=== PATIENT | male | born 1970 | race Caucasian/White ===

== ENCOUNTER → 2016-09-01 | Outpatient (CLI) | payer OTHER ==
--- NOTE | 2016-09-02 16:38 | XR ---
EXAMINATION TYPE: XR chest 2V DATE OF EXAM: 09/01/2016 11:38 AM COMPARISON: None HISTORY: 46-year-old male with cough TECHNIQUE: Frontal and lateral views FINDINGS: The cardiomediastinal silhouette, aorta, and pulmonary vasculature are within normal limits. Some str yudelka atelectasis in the lower lungs. Otherwise, lungs and pleural spaces are clear. IMPRESSION: No acute cardiopulmonary process.
== END ==
LOC: RADXRYALE 11:25
PROVIDERS: ATTEND Internal Medicine
DX: R05 Cough (principal)
CPT/HCPCS: 71020

== ENCOUNTER → 2016-09-20 | Outpatient (CLI) | payer OTHER ==
--- NOTE | 2016-09-20 12:27 | ECHOF ---
Referral Reason:R06.02 SOV MEASUREMENTS -------- HEIGHT: 167.6 cm WEIGHT: 83.9 kg BP: 148/84 RVIDd: 3.7 cm (< 3.3) IVSd: 1.1 cm (0.6 - 1.1) LVIDd: 3.7 cm (3.9 - 5.3) LVPWd: 1.1 cm (0.6 - 1.1) IVSs: 1.4 cm LVIDs: 2.6 cm LVPWs: 1.5 cm LA Diam: 3.6 cm (2.7 - 3.8) LAESV Index (A-L): 28.13 ml/m Ao Diam: 3.3 cm (2.0 - 3.7) AV Cusp: 2.4 cm (1.5 - 2.6) MV EXCURSION: 18.395 mm (> 18.000) MV EF SLOPE: 49 mm/s (70 - 150) MV E Riki: 0.57 m/s MV DecT: 325 ms MV A Riki: 0.39 m/s MV E/A Ratio: 1.45 FINDINGS -------- Sinus rhythm. This was a technically good study. The left ventricular size is normal. There is borderline concentric left ventricular hypertrophy. Overall left ventricular systolic function is normal with, an EF between 60 - 65 %. The right ventricle is mildly enlarged. Normal LA size by volume 22+/-6 ml/m2. The right atrium is normal in size. The aortic valve is trileaflet and appears structurally normal. The mitral valve is normal. The tricuspid valve appears structurally normal. Trace/mild (physiologic) pulmonic regurgitation. The aortic root size is normal. The inferior vena cava is mildly dilated. The pericardium is normal. CONCLUSIONS -------- 1. Sinus rhythm. 2. The mitral valve is normal. 3. The tricuspid valve appears structurally normal. 4. Trace/mild (physiologic) pulmonic regurgitation. 5. The aortic root size is normal. 6. The inferior vena cava is mildly dilated. 7. The pericardium is normal. 8. This was a technically good study. 9. The left ventricular size is normal. 10. There is borderline concentric left ventricular hypertrophy. 11. Overall left ventricular systolic function is normal with, an EF between 60 - 65 %. 12. The right ventricle is mildly enlarged. 13. Normal LA size by volume 22+/-6 ml/m2. 14. The right atrium is normal in size. 15. The aortic valve is trileaflet and appears structurally normal. SHINGLE GRADER: Alanna Uribe RDCS
--- NOTE | 2016-09-20 12:58 | EST ---
DATE OF SERVICE: 09/20/2016 AGE: 46Y SEX: M HT: 66" WT: 185 lbs. Protocol Daniel: X Other: Stress Stage: 4 Dur. of Exercise: 10:00 *Heart Rate Blood Pressure *Rest: 69 Rest: 148/84 * *Max. Achieved: 154 Maximum BP: 184/64 85% PMHR: 150 100% PMHR: 176 *METS: 11.7 INDICATIONS: Chest pain. MEDICATIONS: - Baseline EKG revealed normal sinus rhythm without significant ST-T changes. Patient walked on standard Daniel protocol for 10 minutes, achieved a maximum heart rate of 154 beats per minute, which is more than 85% of predicted maximal. He developed fatigue, shortness of breath, but did not have angina or arrhythmia. EKG did not reveal any ST segment changes to indicate ischemia. FINAL IMPRESSION: By EKG criteria, this is a negative stress test with good exercise capacity. There was no angina or arrhythmia.
== END | disposition home or self-care (01) ==
LOC: RADNMMAIN 10:59
PROVIDERS: ATTEND Internal Medicine
DX: I37.1 Nonrheumatic pulmonary valve insufficiency (principal); I51.7 Cardiomegaly
CPT/HCPCS: 93017; 93306

== ENCOUNTER → 2020-12-07 | Outpatient (CLI) | payer OTHER ==
--- NOTE | 2020-12-07 12:43 | XR ---
EXAMINATION TYPE: XR hand complete RT DATE OF EXAM: 12/07/2020 COMPARISON: NONE HISTORY: 50 year-old male right hand pain, [id number]. TECHNIQUE: 3 views FINDINGS: No acute fracture or dislocation. There is some chronic-appearing bony deformity to the base of the f ifth distal phalanx. Some mild spurring here as well. No marginal erosions or soft tissue calcificati ons. IMPRESSION: Chronic-appearing bony deformity involving the fifth distal phalanx likely sequela of a remote injury . Clinically correlate. 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 Otherwis e, no acute osseous abnormality seen.
== END | disposition home or self-care (01) ==
LOC: RADXRYALE 12:08
PROVIDERS: ATTEND Internal Medicine
DX: M19.041 Primary osteoarthritis, right hand (principal)

== ENCOUNTER 2023-07-31 14:03 | Emergency (ER) | payer OTHER ==
[2023-07-31] MEDS: PROPARACAINE 0.5% OPHTH DROPS 15 ML BTL LEFT EYE STA (14:18)
[2023-07-31] MEDS: FLUORESCEIN STRIPS 1 MG STRIP LEFT EYE ONE (14:18)
[2023-07-31 14:37] VITALS: BP 137/82; PULSE 78; RESP 20; TEMP 98.8
--- NOTE | 2023-07-31 14:43 | ED ---
Eye Problem HPI - General Chief complaint: Eye Problems Stated complaint: Eye Pain Time Seen by Provider: 07/31/23 14:09 Source: patient, RN notes reviewed Mode of arrival: ambulatory Limitations: no limitations - History of Present Illness Initial comments: This is a 53-year-old male who presents to the emergency department for left eye pain/irritation. States that he was working at his cabin 3 days ago, when something went up through his safety glasses and went into his left eye. He did try rinsing this out, but is unsure if there may still be something left in there or if he scratched it. He has continued to have irritation and clear drainage from the eye. Denies any difficulty with his vision. Tetanus vaccine is up-to-date. He does not wear contacts. MD chief complaint: eye pain - Related Data Allergies Allergy/AdvReac Type Severity Reaction Status Date / Time No Known Allergies Allergy Verified 07/31/23 14:07 Review of Systems ROS Statement: Those systems with pertinent positive or pertinent negative responses have been documented in the HPI. ROS Other: All systems not noted in ROS Statement are negative. Past Medical History Past Medical History: No Reported History History of Any Multi-Drug Resistant Organisms: None Reported Past Surgical History: No Surgical Hx Reported Past Psychological History: No Psychological Hx Reported Smoking Status: Never smoker Past Alcohol Use History: None Reported Past Drug Use History: None Reported General Exam Limitations: no limitations General appearance: alert, in no apparent distress Head exam: Present: atraumatic, normocephalic, normal inspection Eye exam: Present: other (Dark spot on the left cornea suggestive of ocular foreign body.) Respiratory exam: Present: normal lung sounds bilaterally. Absent: respiratory distress, wheezes, rales, rhonchi, stridor Cardiovascular Exam: Present: regular rate, normal rhythm, normal heart sounds. Absent: systolic murmur, diastolic murmur, rubs, gallop, clicks Neurological exam: Present: alert, oriented X3, CN II-XII intact Psychiatric exam: Present: normal affect, normal mood Course Vital Signs 07/31/23 14:05 Temperature 98.8 F Pulse Rate 78 Respiratory 20 Rate Blood Pressure 137/82 O2 Sat by Pulse 99 Oximetry Procedures - Forgein Body Removal Eye Site: Left Anesthetic Used: Proparacaine Eye Exam Technique: Stone Lamp, Fluorescein Foreign Body Suspected: Wood Forgein Body Removal Technique: Cotton Swab Remaining Debris: No Patient Tolerated: well Medical Decision Making - Medical Decision Making This is a 53-year-old male who presents to the emergency department for left eye pain. Was pt. sent in by a medical professional or institution? @ -No Did you speak to anyone other than the patient for history? @ -No Did you review nursing and triage notes? @ -Yes, and I agree, it is accurate with regards to the patient's symptoms. Were old charts reviewed? @ -No Differential Diagnosis? @ -Differential Eye Pain: Conjuncitivitis (viral, bacterial, allergic), corneal abrasion, foreign body, iritis, uveitis, keratitis, acute angle closure glaucoma, this is not meant to be an all-inclusive list. EKG interpreted by me (3pts min.)? @ -Not obtained X-rays interpreted by me (1pt min.)? @ -Not obtained CT interpreted by me (1pt min.)? @ -Not obtained U/S interpreted by me (1pt. min.)? @ -Not obtained What testing was considered but not performed? (CT, X-rays, U/S, labs)? Why? @ -None What meds were considered but not given? Why? @ -None Did you discuss the management of the patient with other professionals? @ -No Did you reconcile home meds? @ -No Was smoking cessation discussed for >3mins.? @ -No Was critical care preformed (if so, how long)? @ -No Were there social determinants of health that impacted care today? How? (Homelessness, low income, unemployed, alcoholism, drug addiction, transportation, low edu. Level, literacy, decrease access to med. care, nursing home, rehab)? @ -No Was there de-escalation of care discussed even if they declined? (Discuss DNR or withdrawal of care, Hospice)? @ -No What co-morbidities impacted this encounter? (DM, HTN, Smoking, COPD, CAD, Cancer, CVA, Hep., AIDS, mental health diagnosis, sleep apnea, morbid obesity)? @ -None Was patient admitted / discharged? @ -Discharge. Fluorescein staining of the eye did not identify any evidence of a corneal abrasion. Use of Stone lamp did identify a foreign body on the cornea. A cotton swab was used and this was easily removed. His eye was irrigated afterwards. Fluorescein staining again performed afterwards and no residual foreign body or corneal ulceration was identified. Patient's tetanus vaccine is up-to-date. Moxifloxacin eyedrops provided in the emergency department to continue using for 7 days for infectious prophylaxis. Advised ib uprofen and Tylenol as needed for pain relief. Patient discharged home in stable condition. Undiagnosed new problem with uncertain prognosis? @ -None Drug Therapy requiring intensive monitoring for toxicity (Heparin, Nitro, Insulin, Cardizem)? @ -None Were any procedures done? @ -None Diagnosis/symptom? @ -Ocular foreign body Acute, or Chronic, or Acute on Chronic? @ -Acute Uncomplicated (without systemic symptoms) or Complicated (systemic symptoms)? @ -Uncomplicated Side effects of treatment? @ -None Exacerbation, Progression, or Severe Exacerbation] @ -Not applicable Poses a threat to life or bodily function? @ -No Return precautions reviewed in depth, the patient is instructed to return to the emergency department with any new, worsening, or concerning symptoms. Patient verbalized understanding. This case was discussed in detail with the attending ED physician, Dr. Arriola. Presentation, findings, and treatment plan discussed in detail as well. Disposition Clinical Impression: Corneal foreign body Disposition: HOME SELF-CARE Instructions (If sedation given, give patient instructions): Eye Foreign Body (ED) Additional Instructions: Return to the emergency department with any new, worsening, or concerning symptoms. Apply the antibiotic eyedrops provided as 1 drop to the left eye 3 times a day for 7 days. Alternate with ibuprofen and Tylenol as needed for pain relief. Follow up with your primary care provider in 1-2 days. Is patient prescribed a controlled substance at d/c from ED?: No Referrals: None,Stated [REFERRING] - 1-2 days Time of Disposition: 14:42
[2023-07-31] MEDS: MOXIFLOXACIN HCL 0.5% DROPS 3 ML BTL LEFT EYE ONE (14:57)
== END 2023-07-31 15:01 | disposition home or self-care (01) ==
LOC: EC 14:03
DX: T15.02XA Foreign body in cornea, left eye, initial encounter (principal)
CPT/HCPCS: 65222; 99283